=== PATIENT | male | born 1965 | race Caucasian/White ===

== ENCOUNTER → 2022-03-19 | Outpatient (CLI) | payer BC ==
[~2022-03-19] VITALS: Ht 175.3 cm; Wt 78.2 kg
[~2022-03-19] MED LIST: ACHD5005 PO; ATOR20TA66 PO; CPR500T PO; DOCU-143 PO; HYDR-4226 PO; HYDR1TAB PO; LISI10TA25 PO; METF-397 PO; NAPR-1071 PO; TAMS0.4C2 PO
== END | disposition home or self-care (01) ==
LOC: PREOP 05:27
PROVIDERS: ATTEND Surgery
DX: Z01.818 Encounter for other preprocedural examination (principal)

== ENCOUNTER 2022-03-25 08:58 | Day surgery (SDC) | payer BC ==
[~2022-03-25] VITALS: Ht 175.3 cm; Wt 78.2 kg
[2022-03-25] MEDS ORDERED: LACTATED RINGERS 1,000 ML IV STA (09:03)
[2022-03-25 09:23] VITALS: BP 131/87
--- NOTE | 2022-03-25 09:38 | Progress Note-Pre Operative ---
Pre-Operative Progress Note Date of Available H&P: Mar 17, 2022 Date H&P Reviewed: Mar 25, 2022 Time H&P Reviewed: 09:38 History & Physical: H&P Reviewed, Patient Examed, No changes noted Pre-Operative Diagnosis: screening colonoscopy RIYA POWELL DO Mar 25, 2022 09:38
[2022-03-25 09:40] VITALS: BP 131/87
[2022-03-25] MEDS ORDERED: MIDAZOLAM 2 MG/2 ML (VERSED) VIAL ONE (09:53)
[2022-03-25] MEDS ORDERED: PROPOFOL INJECTION 50 ML IV ONE ×2 (09:53→10:08)
[2022-03-25 10:32] VITALS: BP 103/59
[2022-03-25 10:37] VITALS: BP 107/61
[2022-03-25 10:40] VITALS: BP 107/61
--- NOTE | 2022-03-25 10:55 | Discharge Inst-Simple/Standard ---
Discharge Inst-Standard Patient Instructions/Follow Up Plan of Care/Instructions/FU: 2 weeks Erik Activity as Tolerated: Yes Discharge Diet: Regular Diet RIAY POWELL DO Mar 25, 2022 10:54
[2022-03-25 11:13] VITALS: BP 107/61
--- NOTE | 2022-03-25 12:23 | Anesthesia-General Post-Op ---
MAC Patient Condition Mental Status/LOC: Same as Preop Cardiovascular: Satisfactory Nausea/Vomiting: Absent Respiratory: Satisfactory Pain: Controlled Complications: Absent Post Op Complications Complications None Follow Up Care/Instructions Patient Instructions None needed. Anesthesiology Discharge Order Discharge Order Patient is doing well, no complaints, stable vital signs, no apparent adverse anesthesia problems. No complications reported per nursing. MEÑO STEWART CRNA Mar 25, 2022 12:23
--- NOTE | 2022-03-26 04:54 | OPERATIVE REPORT ---
DATE OF SERVICE: 03/25/2022 PREOPERATIVE DIAGNOSIS: Screening colonoscopy. POSTOPERATIVE DIAGNOSIS: Colon polyps. PROCEDURE: Colonoscopy with snare polypectomy x5. SURGEON: Riya Valencia DO. ANESTHESIA: Per CERTIFIED HEARING INSTRUMENT DISPENSER. ESTIMATED BLOOD LOSS: None. COMPLICATIONS: None. INDICATIONS: The patient is a 56-year-old male needing colonoscopy. He understands risks and benefits of procedure and wishes to proceed. Consent was signed in the chart. DESCRIPTION OF PROCEDURE: The patient was taken to the endoscopy suite, placed in left lateral recumbent position. Timeout was performed. Digital rectal exam was performed. No palpable polyps, masses or ulcerations. Scope was inserted in the rectum and advanced all the way to cecum with minimal difficulty. Prep was adequate with irrigation and suction. Scope was slowly retracted back. No polyps, masses or ulcerations within the cecum, ascending and transverse colon. Within the descending colon, splenic flexure, there were 2 polyps present, which snare polypectomies were performed. These were obtained for specimen. Scope was then continuously retracted back into the descending colon, another polyp was present, which snare polypectomy was performed. Scope was then continuously retracted back into the sigmoid colon where another polyp was present, which snare polypectomy was performed. Scope was then continuously retracted back into the rectum where another polyp was present, which snare polypectomy was performed. Scope was retroflexed noting no other pathology. Scope was returned to its normal position, slowly withdrawn until completely removed. The patient tolerated procedure well without complications and taken to recovery room in stable condition. RECOMMENDATIONS: I would recommend repeat colonoscopy in 3 years. Any issues before that be seen at that time. He will follow up in the office in 2 weeks to discuss pathology results. Further recommendations pending. Job ID: [id number] DocumentID: [id number] Dictated Date: 03/25/2022 19:56:50 Server Systems Administrator Date: 03/26/2022 04:53:32 Dictated By: RIYA VALENCIA DO
== END 2022-03-25 11:15 | disposition home or self-care (01) ==
LOC: ENDO 08:58
PROVIDERS: ATTEND Surgery
DX: Z12.11 Encounter for screening for malignant neoplasm of colon (principal); D12.3 Benign neoplasm of transverse colon; D12.4 Benign neoplasm of descending colon; D12.5 Benign neoplasm of sigmoid colon; D12.8 Benign neoplasm of rectum; E11.9 Type 2 diabetes mellitus without complications; Z79.84 Long term (current) use of oral hypoglycemic drugs
CPT/HCPCS: 82947; 88305